=== PATIENT | male | born 1955 | race African-American/Black ===

== ENCOUNTER 2022-09-15 11:30 | Emergency (ER) | payer OTHER ==
[2022-09-15] MEDS ORDERED: Iopamidol-370 76% 500 ML 1 ML ONE (12:30)
[2022-09-15 12:55] LABS: #Eosinphils 0.4 thou/uL (0.0-0.7); #Lymphocytes 1.3 thou/uL (1.20-3.40); #Monocytes 0.8 thou/uL (0.11-0.59); #Neutrophils 3.1 thou/uL (1.40-6.50); %Basophils 0.3 % (0.0-1.0); %Eosinophils 6.6 % (0.0-10.0); %Lymphocytes 23.7 % (21.0-51.0); %Monocytes 13.6 % (0.0-10.0); %Neutrophils 55.9 % (42.0-75.0); Hemoglobin 14.2 g/dL (14.0-18.0); Mean Corpuscular HGB CONC 32.8 g/dL (32.0-36.0); Mean Corpuscular Hemoglobin 31.6 pg (27.0-31.0); Mean Corpuscular Volume 96.4 fl (78.0-98.0); Mean Platelet Volume 7.6 fL (7.4-10.4); Platelet Count 171 10x3/uL (130-400); RBC Distribution Width 13.7 % (11.5-14.5); Red Blood Cell (RBC) Count 4.48 mill/uL (4.70-6.10); White Blood Cell (WBC) Count 5.5 10x3/uL (4.8-10.8)
[2022-09-15 13:09] LABS: ALT (SGPT) 20 U/L (8-55); AST (SGOT) 20 U/L (5-34); Albumin 3.8 g/dL (3.4-4.8); Alkaline Phosphatase 75 U/L (40-110); Anion Gap 13 mmol/L (10-20); BUN (Urea Nitrogen) 10 mg/dL (8.4-25.7); Bilirubin, Total 0.7 mg/dL (0.2-1.2); Calc. Creatinine Clearance 0 mL/min (70-130); Calcium 8.9 mg/dL (7.8-10.44); Carbon Dioxide 30 mmol/L (23-31); Chloride 103 mmol/L (98-107); Estimated GFR 59; Glucose 83 mg/dL (80-115); Lipase 19 U/L (8-78); Protein, Total 7.8 g/dL (5.8-8.1); Sodium 142 mmol/L (136-145)
[2022-09-15 18:41] LABS: Syphilis Antibody Nonreactive (Nonreactive); Syphilis Antibody Index 0.12 S/CO (<1.00 Non-Reactive)
== END 2022-09-15 19:36 | disposition short-term general hospital (02) ==
LOC: ERS 11:30
DX: R07.9 Chest pain, unspecified (principal); F17.210 Nicotine dependence, cigarettes, uncomplicated; I25.2 Old myocardial infarction; I10 Essential (primary) hypertension; E78.5 Hyperlipidemia, unspecified; Z79.899 Other long term (current) drug therapy
CPT/HCPCS: 36415; 71045; 71275; 74174; 80053; 83690; 84484; 85025; 86780; 93005; Q9967

== ENCOUNTER 2023-08-17 21:00 | Inpatient (IN) | payer OTHER ==
[2023-08-17 21:55] VITALS: BMI 42.2
[2023-08-17] MEDS ORDERED: Morphine 4 MG/ML VIAL SLOW IVP PRN (22:01)
[2023-08-17] MEDS ORDERED: Morphine 2 MG/ML VIAL SLOW IVP PRN (22:01)
[2023-08-17] MEDS ORDERED: Meropenem 1 GM in Sodium Chloride 0.9% 100 ML IVPB SCH ×2 (22:30→22:45)
[2023-08-17] MEDS ORDERED: Vancomycin (BATCH) 2 GM in Premix 1 BAG IVPB SCH (23:00)
[2023-08-18] MEDS: Meropenem 1 GM in Sodium Chloride 0.9% 100 ML IVPB SCH ×2 (05:17→14:52)
[2023-08-18] MEDS: Vancomycin 1 GM in Premix 1 BAG IVPB SCH ×2 (05:17→16:43)
[2023-08-18] MEDS: Heparin 5,000 UNITS/ML VIAL SC SCH ×3 (08:19→19:43)
[2023-08-18] MEDS: Carvedilol 3.125 MG TAB PO SCH ×2 (08:19→19:43)
[2023-08-18 09:35] LABS: #Eosinphils 0.3 thou/uL (0.0-0.7); #Monocytes 0.8 thou/uL (0.11-0.59); #Neutrophils 6.7 thou/uL (1.40-6.50); %Basophils 0.2 % (0.0-1.0); %Eosinophils 2.8 % (0.0-10.0); %Lymphocytes 11.7 % (21.0-51.0); Hematocrit 38.7 % (42.0-52.0); Hemoglobin 12.7 g/dL (14.0-18.0); Mean Corpuscular HGB CONC 32.8 g/dL (32.0-36.0); Mean Corpuscular Hemoglobin 30.6 pg (27.0-31.0); Mean Corpuscular Volume 93.3 fl (78.0-98.0); Mean Platelet Volume 9.9 fL (7.4-10.4); Platelet Count 172 10x3/uL (130-400); RBC Distribution Width 14.4 % (11.5-14.5); Red Blood Cell (RBC) Count 4.15 mill/uL (4.70-6.10); White Blood Cell (WBC) Count 8.8 10x3/uL (4.8-10.8)
[2023-08-18 10:09] LABS: ALT (SGPT) 12 U/L (8-55); AST (SGOT) 17 U/L (5-34); Albumin 3.1 g/dL (3.4-4.8); Alkaline Phosphatase 72 U/L (40-110); Anion Gap 13 mmol/L (10-20); BUN (Urea Nitrogen) 15 mg/dL (8.4-25.7); Bilirubin, Total 0.9 mg/dL (0.2-1.2); Calc. Creatinine Clearance 93 mL/min (70-130); Calcium 8.4 mg/dL (7.8-10.44); Carbon Dioxide 29 mmol/L (23-31); Chloride 102 mmol/L (98-107); Estimated GFR 52; Globulin 4.6 g/dL (2.4-3.5); Glucose 95 mg/dL (80-115); Protein, Total 7.7 g/dL (5.8-8.1); Sodium 141 mmol/L (136-145)
[2023-08-18] MEDS: Atorvastatin Calcium 40 MG TAB PO SCH (19:43)
[2023-08-18] MEDS: Bumetanide 1 MG TAB PO SCH (19:43)
[2023-08-19 05:10] LABS: Hematocrit 36.4 % (42.0-52.0); Manual Diff?? YES; Mean Corpuscular Hemoglobin 30.5 pg (27.0-31.0); Mean Corpuscular Volume 92.4 fl (78.0-98.0); Mean Platelet Volume 9.5 fL (7.4-10.4); Platelet Count 181 10x3/uL (130-400); RBC Distribution Width 14.3 % (11.5-14.5); Red Blood Cell (RBC) Count 3.94 mill/uL (4.70-6.10); White Blood Cell (WBC) Count 7.6 10x3/uL (4.8-10.8)
[2023-08-19 05:14] LABS: Delete Auto Diff?? YES
[2023-08-19 05:30] LABS: Vancomycin, Trough 11.2 ug/mL
[2023-08-19 05:32] LABS: Anion Gap 12 mmol/L (10-20); BUN (Urea Nitrogen) 15 mg/dL (8.4-25.7); CRP (Inflammatory) 8.69 mg/dL (= or < 0.5); Calc. Creatinine Clearance 108 mL/min (70-130); Calcium 8.5 mg/dL (7.8-10.44); Carbon Dioxide 29 mmol/L (23-31); Chloride 102 mmol/L (98-107); Estimated GFR 62; Glucose 91 mg/dL (80-115); Potassium 3.1 mmol/L (3.5-5.1); Sodium 140 mmol/L (136-145)
[2023-08-19 05:41] LABS: Band 2 % (5-11); CellaVision Operator ID lab.abc; Eosinophils 4 % (0-10); Lymphocytes 12 % (21-51); Monocytes 8 % (0-10); Neutrophil 72 % (42-75); Platelet Adequacy Comment Platelets Normal; RBC Morphology Within Normal Limits; Smudge Cells 18.8 %; Total Cell Count 101
[2023-08-19] MEDS: Vancomycin (BATCH) 1.5 GM in Premix 1 BAG IVPB SCH ×2 (05:49→17:09)
[2023-08-19] MEDS: Lisinopril 20 MG TAB PO SCH (09:27)
[2023-08-19] MEDS: Bumetanide 1 MG TAB PO SCH ×2 (09:27→20:14)
[2023-08-19] MEDS: Heparin 5,000 UNITS/ML VIAL SC SCH ×3 (09:27→20:14)
[2023-08-19] MEDS: Clopidogrel Bisulfate 75 MG TAB PO SCH (09:27)
[2023-08-19] MEDS: Carvedilol 3.125 MG TAB PO SCH ×2 (09:27→20:14)
[2023-08-19] MEDS: Zinc Sulfate 220 MG CAP PO SCH (09:27)
[2023-08-19] MEDS: Potassium Chloride 20 MEQ TAB PO SCH ×2 (11:39→15:05)
[2023-08-19] MEDS: Atorvastatin Calcium 40 MG TAB PO SCH (20:14)
[2023-08-20] MEDS: Vancomycin (BATCH) 1.5 GM in Premix 1 BAG IVPB SCH (05:21)
[2023-08-20 06:21] LABS: Hemoglobin 12.3 g/dL (14.0-18.0); Manual Diff?? YES; Mean Corpuscular HGB CONC 32.4 g/dL (32.0-36.0); Mean Corpuscular Hemoglobin 29.9 pg (27.0-31.0); Mean Corpuscular Volume 92.5 fl (78.0-98.0); Platelet Count 199 10x3/uL (130-400); RBC Distribution Width 14.3 % (11.5-14.5); Red Blood Cell (RBC) Count 4.11 mill/uL (4.70-6.10); White Blood Cell (WBC) Count 7.3 10x3/uL (4.8-10.8)
[2023-08-20 06:48] LABS: Anion Gap 14 mmol/L (10-20); BUN (Urea Nitrogen) 14 mg/dL (8.4-25.7); CRP (Inflammatory) 6.04 mg/dL (= or < 0.5); Calc. Creatinine Clearance 117 mL/min (70-130); Calcium 8.7 mg/dL (7.8-10.44); Carbon Dioxide 27 mmol/L (23-31); Chloride 104 mmol/L (98-107); Estimated GFR 68; Glucose 76 mg/dL (80-115); Magnesium 2.1 mg/dL (1.6-2.6); Potassium 3.5 mmol/L (3.5-5.1); Sodium 141 mmol/L (136-145)
[2023-08-20 07:41] LABS: Delete Auto Diff?? YES
[2023-08-20 08:13] LABS: Band 4 % (5-11); CellaVision Operator ID LAB.KW3; Eosinophils 10 % (0-10); Large Platelets 2.9 % (0-5); Lymphocytes 12 % (21-51); Monocytes 7 % (0-10); Neutrophil 66 % (42-75); Platelet Adequacy Comment Platelets Normal; Polychromasia SLIGHT = 2-3 cells HPF (0-2); Reactive Lymphocytes 2 % (0-10); Total Cell Count 104
[2023-08-20 08:33] VITALS: BP 157/71; TEMP 97.6
[2023-08-20] MEDS: Heparin 5,000 UNITS/ML VIAL SC SCH ×2 (08:50→14:40)
[2023-08-20] MEDS: Clopidogrel Bisulfate 75 MG TAB PO SCH (08:50)
[2023-08-20] MEDS: Lisinopril 20 MG TAB PO SCH (08:50)
[2023-08-20] MEDS: Carvedilol 3.125 MG TAB PO SCH (08:50)
[2023-08-20] MEDS: Zinc Sulfate 220 MG CAP PO SCH (08:50)
[2023-08-20] MEDS: Bumetanide 1 MG TAB PO SCH (08:51)
== END 2023-08-20 18:51 | DRG 603 ==
LOC: EEVIPCON 21:00 → T4-A 21:00
PROVIDERS: ADMIT Family Medicine; ATTEND Family Medicine
DX: L03.115 Cellulitis of right lower limb (principal); N17.9 Acute kidney failure, unspecified; E78.5 Hyperlipidemia, unspecified; I87.8 Other specified disorders of veins; L03.116 Cellulitis of left lower limb; I73.9 Peripheral vascular disease, unspecified; N18.9 Chronic kidney disease, unspecified; I12.9 Hypertensive chronic kidney disease with stage 1 through stage 4 chronic kidney disease, or unspecified chronic kidney disease; I87.2 Venous insufficiency (chronic) (peripheral); Z86.73 Personal history of transient ischemic attack (TIA), and cerebral infarction without residual deficits; Z88.8 Allergy status to other drugs, medicaments and biological substances; Z79.899 Other long term (current) drug therapy; Z79.82 Long term (current) use of aspirin
CPT/HCPCS: 36415; 80048; 80053; 80202; 83735; 85025; 86140; 97139; J1644; J2185; J3370; J3370-JW; J3490